=== PATIENT | male | born 1985 | race Caucasian/White ===

== ENCOUNTER 2019-01-21 06:00 | Day surgery (SDC) | payer MEDICAID ==
[~2019-01-21] VITALS: Ht 182.9 cm; Wt 120.2 kg
[2019-01-21] MEDS ORDERED: CEFAZOLIN SOD 2 GM in D5W 50 ML IV ONE (07:30)
[2019-01-21] MEDS ORDERED: fentaNYL CITRATE 250 MCG/5 ML AMP IV ONE (08:00)
[2019-01-21] MEDS ORDERED: SEVOFLURANE 15 MIN GAS INH ONE (08:00)
[2019-01-21] MEDS ORDERED: OXYMETAZOLINE HCL 0.05% NASAL SPRAY NS ONE (08:00)
[2019-01-21] MEDS ORDERED: ROCURONIUM BROMIDE 10 MG/ML (ZEMURON) IV ONE (08:00)
[2019-01-21] MEDS ORDERED: OFLOXACIN 0.3%, 5 ML EAR DROPS OT ONE (08:00)
[2019-01-21] MEDS ORDERED: NS 1000 ML IV.SOLN IV ONE (08:00)
[2019-01-21] MEDS ORDERED: PROPOFOL 200MG/ 20ML VIAL (DIPRIVAN) IV ONE (08:00)
[2019-01-21] MEDS ORDERED: ONDANSETRON HCL 4 MG/2 ML VIAL IVP ONE (08:00)
[2019-01-21] MEDS ORDERED: LR 1,000 ML IV.SOLN IV ONE (08:00)
[2019-01-21] MEDS ORDERED: GELATIN SPONGE 12 X 7 (GELFOAM) TP ONE (08:00)
[2019-01-21] MEDS ORDERED: LIDOCAINE/EPI 1% 1:100000 20 ML VIAL INJ ONE (08:00)
[2019-01-21] MEDS ORDERED: MIDAZOLAM HCL 5 MG/5 ML VIAL IVP ONE (08:00)
[2019-01-21] MEDS ORDERED: POLYMYXIN 500,000/BACIT.10,000 UNITS in NS IRR 1 L IR ONE (10:18)
[2019-01-21] MEDS ORDERED: MORPHINE 4 MG/ML INJ. SYRINGE IVP PRN ×3 (11:00)
[2019-01-21] MEDS ORDERED: ONDANSETRON HCL 4 MG/2 ML VIAL IVP PRN ×2 (11:00→12:30)
[2019-01-21] MEDS ORDERED: LR 1,000 ML IV SCH (11:00)
[2019-01-21] MEDS ORDERED: HYDROcodone/ACETAMIN 5-325 MG TAB (NORCO/ VICODIN) PO PRN ×2 (12:30)
[2019-01-21] MEDS ORDERED: MORPHINE 4 MG/ML INJ. SYRINGE ONE (12:56)
[2019-01-21 13:01] VITALS: BP_SYST 146
== END 2019-01-21 14:12 | disposition home or self-care (01) ==
LOC: SMU 06:00 → SDS 06:00
PROVIDERS: ATTEND Otolaryngology
DX: H72.92 Unspecified perforation of tympanic membrane, left ear (principal); I10 Essential (primary) hypertension; E66.01 Morbid (severe) obesity due to excess calories
CPT/HCPCS: 69631; A4649; J0690; J2250; J2270; J2405; J2704; J3010; J7030; J7060; J7120